=== PATIENT | female | born 1950 | race Caucasian/White ===

== ENCOUNTER → 2016-11-27 | Outpatient (CLI) | payer OTHER | LOC: MOB RAD 16:04 | PROVIDERS: ATTEND Neurological Surgery | DX: S32.001D Stable burst fracture of unspecified lumbar vertebra, subsequent encounter for fracture with routine healing (principal) | CPT/HCPCS: 72100 ==

== ENCOUNTER → 2016-12-03 | Outpatient (CLI) | payer OTHER, MEDICARE ==
--- NOTE | 2016-12-03 12:11 | DI ---
XR L-SPINE 2-3 VW,12/03/2016 10:07 AM: Clinical History: Lumbar burst fracture. Previous Exam: July 10, 2016 Findings: AP and lateral views of the lumbar spine are obtained, and demonstrate a burst fracture of the first lumbar vertebral body. Peripheral vascular calcifications are seen. There are degenerative changes of the left sacroiliac joint. Postsurgical changes are seen of the rig ht hip consistent with a total hip arthroplasty. Impression: Stable compression fracture of the first lumbar vertebral body.
--- NOTE | 2016-12-03 15:25 | DI ---
CT LUMBAR SPINE W/O CONTRAST,12/03/2016 1:45 PM: Clinical History: Stable burst fracture. Previous Exam: March 08, 2016 Findings: Multiple helically acquired CT images are obtained through the lumbar spine without contrast. There h as been some interval increasing compression and and some increased sclerosis. There is loss of inter vertebral disc height at multiple levels with vacuum disc phenomenon. There is stable posterior displacement of the posterior fragments extending into the central canal. Peripheral vascular calcifications are seen. There is some mild facet arthropathy. The lung bases are clear. The paraspinal soft tissues are unremarkable. Vascular calcifications are seen. There is near complete loss of intervertebral disc height at L5/S1 as well. Impression: Worsening compression of the first lumbar vertebral body with essentially stable posterior displaceme nt into the central canal.
== END ==
LOC: RAD 09:52
PROVIDERS: ATTEND Neurological Surgery
DX: S32.011D Stable burst fracture of first lumbar vertebra, subsequent encounter for fracture with routine healing (principal); M54.5 Low back pain; W01.0XXA Fall on same level from slipping, tripping and stumbling without subsequent striking against object, initial encounter; F17.210 Nicotine dependence, cigarettes, uncomplicated
CPT/HCPCS: 72100; 72131; 99214; G0463

== ENCOUNTER → 2017-01-08 | Outpatient (CLI) | payer OTHER, MEDICARE ==
[2017-01-08 10:33] LABS: HEMOGLOBIN A1C 5.55 % (4.2-6.0)
[2017-01-08 10:44] LABS: CHOL/HDL RATIO 2.96 RATIO (0-4.0); LDL CHOLESTEROL,CALCULATED 68.2 mg/dL
== END ==
LOC: MOB LAB 08:41
PROVIDERS: ATTEND Family Medicine
DX: E78.5 Hyperlipidemia, unspecified (principal); S32.011D Stable burst fracture of first lumbar vertebra, subsequent encounter for fracture with routine healing; F17.210 Nicotine dependence, cigarettes, uncomplicated; Z79.899 Other long term (current) drug therapy
CPT/HCPCS: 36415; 80061; 83036; 99212; G0463

== ENCOUNTER → 2017-01-22 | Outpatient (CLI) | payer OTHER, MEDICARE | LOC: MMPC 09:00 | PROVIDERS: ATTEND Family Medicine | DX: J32.9 Chronic sinusitis, unspecified (principal); F43.21 Adjustment disorder with depressed mood; G89.29 Other chronic pain | CPT/HCPCS: 99213; G0463 ==

== ENCOUNTER → 2017-02-06 | Outpatient (CLI) | payer OTHER, MEDICARE ==
[2017-02-06 12:51] LABS: BILIRUBIN,URINE NEGATIVE (NEG); CLARITY,URINE CLEAR (CLEAR); COLOR,URINE YELLOW; GLUCOSE, URINE (UA) NEGATIVE (NEG); NITRATE,URINE NEGATIVE (NEG); OCCULT BLOOD,URINE NEGATIVE (NEG); PROTEIN,URINE NEGATIVE (NEG); UROBILINOGEN,URINE 0.2 EU/dL (0.2)
[2017-02-06 12:52] LABS: BLOOD UREA NITROGEN 15 mg/dL (7-22); BUN/CREATININE RATIO 18.75 (6-20); CALCIUM 9.8 mg/dL (8.7-10.7); EST GLOMERULAR FILTRATION > 60 (>60 ml/min/1.73m(2)); SERUM ALBUMIN 4.3 g/dL (3.5-4.8); URINE SAMPLE TYPE CLEAN CATCH URINE
[2017-02-06 12:53] LABS: BASOPHILS # (AUTO) 0.08 10*3/UL; BASOPHILS % (AUTO) 0.8 % (0-1); EOSINOPHILS # (AUTO) 0.54 10*3/UL; EOSINOPHILS % (AUTO) 5.5 % (0-8); HEMOGLOBIN 15.7 g/dL (12.0-16.0); LYMPHOCYTES # (AUTO) 3.32 10*3/uL; MEAN CORPUSCULAR HEMOGLOBIN 32.9 PG (27-31); MEAN CORPUSCULAR HGB CONC 32.7 g/dL (33-37); MEAN CORPUSCULAR VOLUME 100.6 FL (81-99); MEAN PLATELET VOLUME 9.3 FL (7.4-12.2); MONOCYTES # (AUTO) 0.91 10*3/UL (0.3-0.8); MONOCYTES % (AUTO) 9.3 % (5-15); NEUTROPHILS # (AUTO) 4.97 10*3/UL; NEUTROPHILS % (AUTO) 50.5 % (50-80); RED BLOOD COUNT 4.77 10^6/uL (4.20-5.40)
[2017-02-06 12:56] LABS: PLATELET MORPHOLOGY COMMENT NORMAL MORPHOLOGY (NORM); RBC MORPHOLOGY COMMENT NORMAL MORPHOLOGY (NORM); WBC MORPHOLOGY COMMENT NORMAL MORPHOLOGY (NORM)
== END ==
LOC: MOB LAB 10:44
PROVIDERS: ATTEND Family Medicine
DX: M80.88XA Other osteoporosis with current pathological fracture, vertebra(e), initial encounter for fracture (principal); I10 Essential (primary) hypertension; F17.200 Nicotine dependence, unspecified, uncomplicated
CPT/HCPCS: 36415; 80053; 81003; 85025; 85610; 85730; 99213

== ENCOUNTER → 2017-04-11 | Outpatient (CLI) | payer OTHER, MEDICARE ==
--- NOTE | 2017-04-11 12:11 | DI ---
XR L-SPINE 2-3 VW,04/11/2017 10:23 AM: Clinical History: Status post kyphoplasty. Previous Exam: January 07, 2017 Findings: 3 views of the lumbar spine are obtained, and demonstrate postsurgical changes consistent with kyphop lasty. There is methyl methacrylate noted at the first lumbar level. There is near complete loss of vertebral body height at this level. Multiple peripheral vascular calcifications are seen. There is no evidence of methylmethacrylate within the surrounding soft tissues. A nonobstructive bowel gas pattern is seen. Impression: Status post kyphoplasty
== END ==
LOC: RAD 10:17
PROVIDERS: ATTEND Neurological Surgery
DX: Z48.811 Encounter for surgical aftercare following surgery on the nervous system (principal)
CPT/HCPCS: 72100

== ENCOUNTER → 2017-04-30 | Outpatient (CLI) | payer OTHER, MEDICARE ==
[2017-04-30 10:16] LABS: BLOOD UREA NITROGEN 14 mg/dL (7-22); EST GLOMERULAR FILTRATION > 60 (>60 ml/min/1.73m(2)); MAGNESIUM 1.9 mg/dL (1.6-2.4); PHOSPHORUS 5.2 mg/dl (2.4-4.3)
== END ==
LOC: LAB 09:54
PROVIDERS: ATTEND Family Medicine
DX: M81.0 Age-related osteoporosis without current pathological fracture (principal); F17.200 Nicotine dependence, unspecified, uncomplicated
CPT/HCPCS: 36415; 80048; 83735; 84100; G0463; J0897

== ENCOUNTER → 2017-05-15 | Outpatient (CLI) | payer OTHER, MEDICARE | LOC: MMPC 11:11 | PROVIDERS: ATTEND Surgery | DX: L98.9 Disorder of the skin and subcutaneous tissue, unspecified (principal); L57.0 Actinic keratosis | CPT/HCPCS: 11100 ×2; 17000 ×2; G0463 ==

== ENCOUNTER 2017-07-18 13:37 | Inpatient (IN) ==
[2017-07-18] MEDS ORDERED: LIDOCAINE W/ SODIUM BICARB 0.5 ML SYR SUBD PRN (14:36)
--- NOTE | 2017-07-18 14:45 | PDOC ---
HPI - History of Present Illness History of Present Illness: 59-year-old to 67-year-old female who was seen at the primary care physician's office with increased shortness of breath and cough over the last 2 days she had been in [place] for a couple days where she started getting some cough O2 sats in the low 80s in the office he usually and 90s B liters has been requiring more oxygen and is here admitted the direct admit for COPD exacerbation Past Medical History Medical History: 1. COPD. 2. Hypertension. 3. Coronary artery disease with previous MN in 2000 had 4 stents then. 4. Osteoporosis. 5. Chronic back pain Surgical History: 1. Bilateral knee replacement. 2. Right hip replacement. 3. Hysterectomy Family History: Reviewed an Not Pertinent In the Past 12 Months, Have Used or Abuse Any of the Following Substance: None Medication / Allergies Home Medications: Home Medications Medication Instructions Recorded Confirmed Type Aspirin [Ecotrin] 325 mg ORAL QD tab 08/20/11 07/18/17 History Cetirizine HCl [Zyrtec] 10 mg ORAL QD tab 12/16/12 07/18/17 History Calc/D3/Mag/Zn/Rigging [employer]/Karthik/Beulah 2 ea PO QD #180 tab 03/01/13 07/18/17 History [Calcium 600 mg + Vit D Tab] Alprazolam 1 tab PO TID #60 tab 02/12/16 07/18/17 History Tramadol HCl [Ultram] 1 - 2 mg PO Q6H PRN #100 tab 02/12/16 07/18/17 History Polyethylene Glycol 3350 [Miralax] 17 gm PO DAILY #1 bottle 02/23/16 07/18/17 History Albuterol/Ipratrop Neb Soln 3 ml NEB QID #30 ampul.neb 09/03/16 07/18/17 Rx [Duoneb Neb Soln] Cyclobenzaprine HCl 10 mg PO TID #30 tab 09/16/16 07/18/17 Rx Fluticasone/Salmeterol [Advair #5 #5 Samples 09/16/16 07/18/17 Sample Hfa] Sample Valacyclovir HCl [Valacyclovir] 1,000 mg ORAL TID #21 tab 10/18/16 Clinic Epinephrine [Epipen] 0.3 mg IM PRN #2 ea 11/06/16 07/18/17 Rx Albuterol Sulfate [Proair Hfa] 2 puff INH Q4-6H #3 inh 12/10/16 07/18/17 Rx Benazepril HCl [Lotensin] 10 mg PO QD #90 tab 12/10/16 07/18/17 History Famotidine 40 mg ORAL BID #180 tab 12/10/16 07/18/17 Rx Fluticasone/Salmeterol [Advair 1 puff IH BID #3 inhaler 12/10/16 07/18/17 Rx 250-50 Diskus] Metoprolol Succinate 1 tab PO DAILY #90 tab 12/10/16 07/18/17 Rx Paroxetine HCl 40 mg PO DAILY #90 tab 12/10/16 07/18/17 Rx Simvastatin 1 tab PO DAILY #90 tab 12/10/16 07/18/17 Rx Albuterol Neb Soln 0.083% 1 vial NEB QID PRN #1 box 01/22/17 07/18/17 History Oxycodone HCl/Acetaminophen 1 tab PO Q4H #60 tab 01/22/17 07/18/17 History [Percocet 7.5-325 Mg Tablet] Gabapentin 1 cap PO TID #90 cap 01/23/17 07/18/17 Rx Mometasone Furoate [Asmanex Hfa] #1 #1 Samples 02/06/17 07/18/17 Sample Sample Cefuroxime Axetil [Cefuroxime] 500 mg PO BID #20 tab 06/13/17 07/18/17 Clinic predniSONE Tab [Deltasone Tab] 2 tab PO DAILY #10 tab 06/13/17 07/18/17 Clinic Valacyclovir HCl [Valacyclovir] 1,000 mg ORAL QD #90 tab 06/23/17 07/18/17 Clinic fluticasone-salmeterol 45 mcg-21 #3 Samples 07/04/17 07/18/17 Sample mcg/actuation HFA aerosol inhaler Nitroglycerin SL Tab [Nitrostat 0.4 mg PO ONCE #1 bottle 07/18/17 07/18/17 History SL Tab] Allergies/Adverse Reactions: Allergies 3 Allergy/AdvReac Type Severity Reaction Status Date / Time latex Allergy Severe ANAPHLAXIS Unverified 01/22/17 11:14 hydrocodone Allergy Intermediate HIVES Unverified 01/22/17 11:14 Influenza Virus Vaccines Allergy Intermediate local Unverified 01/22/17 11:14 [Influenza Virus V swelling *RETIRED-12/24/12] and erythema. Nausea avocado, bananas, milk Allergy Mild ANAPHLAXIS Uncoded 09/03/16 02:52 CAT GUT SUTURE Allergy NOT Uncoded 09/03/16 02:52 APPLICABLE Watermelon, kiwi, cantaloupe Allergy ANAPHLAXIS Uncoded 09/03/16 02:52 Allergy Nasal [place] AdvReac Intermediate NOT Uncoded 09/03/16 02:52 APPLICABLE Review of Systems - Review of Systems All Systems: Reviewed & No Additional Complaints Except as Stated - Respiratory Respiratory: REPORTS: Cough, Wheezing - Cardiovascular Cardiovascular: DENIES: Negative System Review, Chest Pain, Edema, Syncope, Palpitations, Orthopnea, Paroxysmal Nocturnal Dyspnea, Other, See HPI - Gastrointestinal Gastrointestinal / Abdominal: DENIES: Negative System Review, Nausea, Vomiting, Diarrhea, Constipation, Abdominal Pain, Bloody Stool, Poor Appetite, Heartburn, Regurgitation, Bloating, Lactose Intolerance, Melena, Bright Red Blood per Rectum, Other, See HPI Exam - General General Appearance: Cooperative - Head Head Exam: Normal Inspection, Normocephalic, Atraumatic - Neck Neck Exam: Normal Inspection - Respiratory Respiratory Exam: POSITIVE: Wheezes, Prolonged Expiratory Phase - Cardiovascular Cardiovascular Exam: POSITIVE: RRR, No Murmur, No Clicks, No Gallops - GI/Abdominal GI/Abdominal Exam: POSITIVE: Non Tender, Non Distended, Soft - Extremities Extremities Exam: POSITIVE: No Clubbing Present, No Edema Present, No Cyanosis Present - Neurological Neurological Exam: POSITIVE: Alert, Oriented x 3, CN II-XII Intact, Speech Intact / Clear Results - Labs CBC and BMP: 07/18/17 15:06 07/18/17 15:06 Assessment and Plan - Patient Problems (1) COPD exacerbation Current Visit: No Status: Acute Code(s): J44.1 - Chronic obstructive pulmonary disease with (acute) exacerbation (2) Hypoxia Current Visit: No Status: Acute Code(s): R09.02 - Hypoxemia (3) Hypertension Current Visit: No Status: Acute Code(s): I10 - Essential (primary) hypertension (4) Depression Current Visit: No Status: Acute Code(s): F32.9 - Major depressive disorder, single episode, unspecified - Assessment / Plan Additional Assessment/Plan Details: COPD exacerbationwe will admit the patient [facility] oxygen therapy to maintain sats around [address] scan for PE or pneumonia start patient on IV Solu-Medrol, ceftriaxone, and Zithromax, also check CBC CMP. Dual nebs for shortness of breath and resume usual medication most of the stuff has not been updated as I did hold the a lot of her meds which I think she does not need a present time. Further treatment depending on CT scan results and labs. For other medical issues include hypertension and GERD continue home meds
[2017-07-18] MEDS ORDERED: ALPRAZOLAM PO SCH (15:00)
[2017-07-18 15:04] LABS: VENOUS PH 7.34 (7.32-7.42)
[2017-07-18 15:09] LABS: BASOPHILS # (AUTO) 0.07 10*3/UL; BASOPHILS % (AUTO) 1.1 % (0-1); EOSINOPHILS # (AUTO) 0.26 10*3/UL; EOSINOPHILS % (AUTO) 4.1 % (0-8); Hematocrit [HCT] 46.3 % (37.0-47.0); Hemoglobin [HGB] 15.2 g/dL (12.0-16.0); LYMPHOCYTES # (AUTO) 2.23 10*3/uL; MEAN CORPUSCULAR HEMOGLOBIN 32.9 PG (27-31); MEAN CORPUSCULAR HGB CONC 32.8 g/dL (33-37); MEAN CORPUSCULAR VOLUME 100.2 FL (81-99); MEAN PLATELET VOLUME 9.2 FL (7.4-12.2); MONOCYTES # (AUTO) 0.91 10*3/UL (0.3-0.8); MONOCYTES % (AUTO) 14.5 % (5-15); NEUTROPHILS % (AUTO) 44.6 % (50-80); RED BLOOD COUNT 4.62 10^6/uL (4.20-5.40)
[2017-07-18 15:13] LABS: PLATELET MORPHOLOGY COMMENT NORMAL MORPHOLOGY (NORM); RBC MORPHOLOGY COMMENT NORMAL MORPHOLOGY (NORM); WBC MORPHOLOGY COMMENT NORMAL MORPHOLOGY (NORM)
[2017-07-18] MEDS: IPRATROPIUM/ALBUTEROL SULFATE 3 ML NEB NEB SCH ×2 (15:14→19:20)
[2017-07-18 15:19] LABS: BLOOD UREA NITROGEN 12 mg/dL (7-22); BUN/CREATININE RATIO 17.14 (6-20)
[2017-07-18] MEDS: cefTRIAXone Inj 1 GM in Sodium Chloride 0.9% 100 ML IV SCH (15:23)
[2017-07-18] MEDS: methylPREDNISolone 125 MG/2 ML VIAL IVP SCH ×2 (15:23→22:13)
[2017-07-18] MEDS: HEPARIN 5000 UNIT/1 ML SUBCUT SCH ×2 (15:23→22:13)
[2017-07-18] MEDS: GABAPENTIN 300 MG CAPSULE PO SCH ×3 (15:24→20:51)
--- NOTE | 2017-07-18 18:29 | DI ---
EXAM: CT Chest With Intravenous Contrast CLINICAL HISTORY: Physician Notes: Tech Comments: TECHNIQUE: Axial computed tomography images of the chest with intravenous contrast. COMPARISON: No relevant prior studies available. FINDINGS: Lungs: No central pulmonary embolus. No consolidation. Pleural space: Unremarkable. No pneumothorax. No effusion. Heart: Cardiomegaly. Bones/joints: Compression deformity and vertebroplasty at L1. Soft tissues: Unremarkable. Vasculature: Unremarkable. Lymph nodes: No enlarged lymph nodes. Liver: Fatty liver. IMPRESSION: No central pulmonary embolus.
[2017-07-18] MEDS: FLUTICASONE/SALMETEROL 250/50 UD INHALER INH SCH (19:27)
[2017-07-18] MEDS: Amoxicill/Clav 875/125mg Tab 1 TAB TAB PO SCH (20:51)
[2017-07-18] MEDS: FAMOTIDINE 40 MG TABLET PO SCH (20:52)
[2017-07-19] MEDS: methylPREDNISolone 125 MG/2 ML VIAL IVP SCH ×2 (03:49→09:25)
[2017-07-19] MEDS: NORMAL SALINE 10 ML SYRINGE FLUSH IVP PRN ×2 (03:51→17:42)
[2017-07-19] MEDS: FLUTICASONE/SALMETEROL 250/50 UD INHALER INH SCH ×2 (06:47→19:11)
[2017-07-19] MEDS: IPRATROPIUM/ALBUTEROL SULFATE 3 ML NEB NEB SCH ×4 (06:48→19:10)
[2017-07-19] MEDS: HEPARIN 5000 UNIT/1 ML SUBCUT SCH ×2 (08:05→20:00)
[2017-07-19] MEDS ORDERED: DOCUSATE 100 MG CAPSULE PO PRN (09:00)
[2017-07-19] MEDS: predniSONE Tab 20 MG TAB PO SCH (09:20)
[2017-07-19] MEDS: PARoxetine Tab 20 MG TAB PO SCH (09:21)
[2017-07-19] MEDS: BENAZEPRIL 10 MG TABLET PO SCH (09:22)
[2017-07-19] MEDS: FAMOTIDINE 40 MG TABLET PO SCH ×2 (09:22→20:16)
[2017-07-19] MEDS: METOPROLOL SUCCINATE 25 MG SR 24H TABLET PO SCH (09:22)
[2017-07-19] MEDS: ASPIRIN 325 MG EC TABLET PO SCH (09:22)
[2017-07-19] MEDS: Amoxicill/Clav 875/125mg Tab 1 TAB TAB PO SCH (09:24)
[2017-07-19] MEDS ORDERED: PNEUMOCOCCAL 23 VACCINE 25 MCG/0.5 ML VIAL IM ONE (15:37)
--- NOTE | 2017-07-19 15:46 | PDOC(PROG) ---
Date and Time of Service: 07/19/2017, 1541 Interval History: No chest pain today. Feels significantly better. States that she smokes a pack per day prior to hospital stay, but when she was on her trip to [place], [place], was down to about half a pack per day and then has not felt like smoking over the last 2 days. Denies any nausea or vomiting. Has an oxygen concentrator at home from an extended pulmonary illness that her suffered from. He passed on a year and a half ago. Objective : Data - Labs CBC and BMP: 07/18/17 15:06 07/18/17 15:06 Additional Lab Results: Laboratory Results 07/18/17 07/18/17 07/18/17 Range/Units 14:57 15:06 15:06 WBC 6.28 (4.8-10.8) 10^3/uL RBC 4.62 (4.20-5.40) 10^6/uL Hgb 15.2 (12.0-16.0) g/dL Hct 46.3 (37.0-47.0) % MCV 100.2 H (81-99) FL MCH 32.9 H (27-31) PG MCHC 32.8 L (33-37) g/dL RDW Std Deviation 50.3 H (39-50) fL RDW Coeff of Angelica 14.0 (11.5-14.5) % Plt Count 260 (140-350) 10*3/uL MPV 9.2 (7.4-12.2) FL Immature Gran % (Auto) 0.2 (0-5) % Neut % (Auto) 44.6 L (50-80) % Lymph % (Auto) 35.5 (10-50) % [place] % (Auto) 14.5 (5-15) % Eos % (Auto) 4.1 (0-8) % Baso % (Auto) 1.1 H (0-1) % Immature Gran # (Auto) 0.01 10*3/UL Neut # (Auto) 2.80 10*3/UL Lymph # (Auto) 2.23 10*3/uL [place] # (Auto) 0.91 H (0.3-0.8) 10*3/UL Eos # (Auto) 0.26 10*3/UL Baso # (Auto) 0.07 10*3/UL WBC Morphology Comment Normal morphology (NORM) Plt Morphology Comment Normal morphology (NORM) RBC Morph Comment Normal morphology (NORM) VBG pH 7.34 (7.32-7.42) VBG pCO2 43 L (45-55) mmHg VBG HCO3 24 (22-26) mmol/L VBG Base Excess -2 (-2-2) MMOL/L Sodium 141 (135-145) meq/L Potassium 4.2 (3.8-5.2) meq/L Chloride 106 (98-112) meq/L Carbon Dioxide 24 (23-33) meq/L Anion Gap 11 (5-20) BUN 12 (7-22) mg/dL Creatinine 0.7 (0.50-1.20) mg/dL Estimated GFR > 60 (>60 ml/min/1.73m(2)) BUN/Creatinine Ratio 17.14 (6-20) Glucose 88 (78-110) mg/dL Calculated Osmolality 290.0 (267-292) mOsm/kg Calcium 9.7 (8.7-10.7) mg/dL Troponin I (< 0.040) ng/mL 07/18/17 Range/Units 15:06 WBC (4.8-10.8) 10^3/uL RBC (4.20-5.40) 10^6/uL Hgb (12.0-16.0) g/dL Hct (37.0-47.0) % MCV (81-99) FL MCH (27-31) PG MCHC (33-37) g/dL RDW Std Deviation (39-50) fL RDW Coeff of Angelica (11.5-14.5) % Plt Count (140-350) 10*3/uL MPV (7.4-12.2) FL Immature Gran % (Auto) (0-5) % Neut % (Auto) (50-80) % Lymph % (Auto) (10-50) % [place] % (Auto) (5-15) % Eos % (Auto) (0-8) % Baso % (Auto) (0-1) % Immature Gran # (Auto) 10*3/UL Neut # (Auto) 10*3/UL Lymph # (Auto) 10*3/uL [place] # (Auto) (0.3-0.8) 10*3/UL Eos # (Auto) 10*3/UL Baso # (Auto) 10*3/UL WBC Morphology Comment (NORM) Plt Morphology Comment (NORM) RBC Morph Comment (NORM) VBG pH (7.32-7.42) VBG pCO2 (45-55) mmHg VBG HCO3 (22-26) mmol/L VBG Base Excess (-2-2) MMOL/L Sodium (135-145) meq/L Potassium (3.8-5.2) meq/L Chloride (98-112) meq/L Carbon Dioxide (23-33) meq/L Anion Gap (5-20) BUN (7-22) mg/dL Creatinine (0.50-1.20) mg/dL Estimated GFR (>60 ml/min/1.73m(2)) BUN/Creatinine Ratio (6-20) Glucose (78-110) mg/dL Calculated Osmolality (267-292) mOsm/kg Calcium (8.7-10.7) mg/dL Troponin I < 0.012 (< 0.040) ng/mL - Imaging CT Scan Status: Report Reviewed by Me (Negative for pulmonary embolism, CT scan of chest was negative for pulmonary embolism) Objective : Exam - General General Appearance: No Acute Distress, Cooperative Additional General Exam Details: Vital Signs - Last Taken Temperature 98 F 07/19/17 11:20 Pulse Rate 92 07/19/17 14:51 Respiratory Rate 16 07/19/17 14:51 Blood Pressure 123/61 07/19/17 11:20 Pulse Ox 94 07/19/17 14:51 On oxygen, 2 L - Eye Eye Exam: No Scleral Icterus - ENT ENT Exam: Mucous Membranes Moist - Respiratory Respiratory Exam: Breathing Non Labored, Wheezes, Coarse Breath Sounds - Cardiovascular Cardiovascular Exam: RRR, No Murmur, No Clicks, No Gallops, No Rubs, No JVD - GI/Abdominal GI/Abdominal Exam: Normal Bowel Sounds, Non Tender, Non Distended, Soft - Extremities Extremities Exam: No Edema Present, No Cyanosis Present - Neurological Neurological Exam: Alert, Oriented x 3, No Facial Droop, Speech Intact / Clear, Moves All Extremities Equally - Psychiatric Psychiatric Exam: Normal Affect, Normal Mood Assessment and Plan - Patient Problems (1) COPD exacerbation Current Visit: Yes Status: Acute Code(s): J44.1 - Chronic obstructive pulmonary disease with (acute) exacerbation (2) Hypercholesterolemia Current Visit: Yes Status: Acute Code(s): E78.00 - Pure hypercholesterolemia , unspecified (3) Hypertension Current Visit: Yes Status: Acute Code(s): I10 - Essential (primary) hypertension Qualifiers: Hypertension type: essential hypertension Qualified Code(s): I10 - Essential (primary) hypertension (4) Depression Current Visit: Yes Status: Chronic Code(s): F32.9 - Major depressive disorder, single episode, unspecified Qualifiers: Depression Type: major depressive disorder Major depression recurrence: recurrent Active/Remission status: remission status unspecified Qualified Code(s): F33.9 - Major depressive disorder, recurrent, unspecified - Assessment / Plan Additional Assessment/Plan Details: continue antibiotics, increase rocephin to 2 grams IV Q 24 hours steroids oxygen as necessary pneumovax breathing therapies as necessary hopefully to orals tomorrow smoking cessation education; I provided k[place]ispel at bedside for smoking cessation.
[2017-07-19] MEDS ORDERED: cefTRIAXone Inj 2 GM in Sodium Chloride 0.9% 100 ML IV SCH (16:00)
[2017-07-19] MEDS: cefTRIAXone Inj 1 GM in Sodium Chloride 0.9% 100 ML IV SCH (17:24)
[2017-07-19] MEDS ORDERED: CEFTRIAXONE SODIUM 2 GM VIAL IV ONE (17:30)
[2017-07-19] MEDS ORDERED: Sodium Chloride 0.9% 100 ML IV ONE (17:30)
[2017-07-19] MEDS: cefTRIAXone Inj 2 GM in Sodium Chloride 0.9% 100 ML IV SCH (17:42)
[2017-07-19] MEDS: GABAPENTIN 300 MG CAPSULE PO SCH (20:16)
[2017-07-19] MEDS: Simvastatin Tab 40 MG TAB PO SCH (20:17)
[2017-07-19] MEDS ORDERED: Pneumococcal Vacc 13 Syringe 0.5 ML DISP.SYRIN IM ONE (21:00)
[2017-07-20] MEDS: HEPARIN 5000 UNIT/1 ML SUBCUT SCH ×3 (03:58→20:09)
[2017-07-20] MEDS: IPRATROPIUM/ALBUTEROL SULFATE 3 ML NEB NEB SCH ×4 (07:36→19:42)
[2017-07-20] MEDS: FLUTICASONE/SALMETEROL 250/50 UD INHALER INH SCH ×2 (07:45→19:45)
[2017-07-20] MEDS ORDERED: ALBUTEROL SULFATE 2.5 MG/3 ML NEB ONE (07:54)
[2017-07-20] MEDS: ASPIRIN 325 MG EC TABLET PO SCH (09:09)
[2017-07-20] MEDS: predniSONE Tab 20 MG TAB PO SCH (09:09)
[2017-07-20] MEDS: BENAZEPRIL 10 MG TABLET PO SCH (09:09)
[2017-07-20] MEDS: METOPROLOL SUCCINATE 25 MG SR 24H TABLET PO SCH (09:09)
[2017-07-20] MEDS: FAMOTIDINE 40 MG TABLET PO SCH ×2 (09:09→21:20)
[2017-07-20] MEDS: PARoxetine Tab 20 MG TAB PO SCH (09:09)
[2017-07-20] MEDS ORDERED: Sodium Chloride 0.9% 100 ML IV ONE (17:26)
[2017-07-20] MEDS: cefTRIAXone Inj 2 GM in Sodium Chloride 0.9% 100 ML IV SCH (17:27)
--- NOTE | 2017-07-20 19:39 | PDOC(PROG) ---
Date and Time of Service: 07/20/2017 193 Interval History: no chest pain. not feeling short of breath. Patient's daughter, a nurse, stated that the patient desaturates when she walks to 86%. She's been on room air oxygen at rest. She will not qualify for home oxygen at that level. No nausea or vomiting. Patient feels significantly better than she did on admission. Objective : Data - Labs CBC and BMP: 07/18/17 15:06 07/18/17 15:06 Objective : Exam - General General Appearance: No Acute Distress, Cooperative Additional General Exam Details: Vital Signs - Last Taken Temperature 97.3 F 07/20/17 16:51 Pulse Rate 93 07/20/17 16:51 Respiratory Rate 18 07/20/17 16:51 Blood Pressure 92/40 07/20/17 16:51 Pulse Ox 93 07/20/17 16:51 On room air oxygen - Eye Eye Exam: No Scleral Icterus - ENT ENT Exam: Mucous Membranes Moist - Respiratory Respiratory Exam: Breathing Non Labored, Wheezes - Cardiovascular Cardiovascular Exam: RRR, No Murmur, No Clicks, No Gallops, No Rubs, No JVD - GI/Abdominal GI/Abdominal Exam: Normal Bowel Sounds, Non Tender, Non Distended, Soft - Extremities Extremities Exam: No Clubbing Present, No Edema Present, No Cyanosis Present - Neurological Neurological Exam: Alert, Oriented x 3, No Facial Droop, Speech Intact / Clear, Moves All Extremities Equally - Psychiatric Psychiatric Exam: Normal Affect, Normal Mood Assessment and Plan - Patient Problems (1) COPD exacerbation Current Visit: Yes Status: Acute Code(s): J44.1 - Chronic obstructive pulmonary disease with (acute) exacerbation (2) Hypercholesterolemia Current Visit: Yes Status: Acute Code(s): E78.00 - Pure hypercholesterolemia , unspecified (3) Hypertension Current Visit: Yes Status: Acute Code(s): I10 - Essential (primary) hypertension Qualifiers: Hypertension type: essential hypertension Qualified Code(s): I10 - Essential (primary) hypertension (4) Depression Current Visit: Yes Status: Chronic Code(s): F32.9 - Major depressive disorder, single episode, unspecified Qualifiers: Depression Type: major depressive disorder Major depression recurrence: recurrent Active/Remission status: remission status unspecified Qualified Code(s): F33.9 - Major depressive disorder, recurrent, unspecified - Assessment / Plan Additional Assessment/Plan Details: Patient overall feels her breathing is much better, but she still continues to have some wheezing. She is on room air oxygen at rest. I would like to watch her 1 more day with desaturation with activity. We'll transition to oral antibiotics tomorrow. Steroid taper. I gave more smoking cessation counseling at bedside today with her daughter present at bedside as well. The patient and her daughter agreed with the plan.
[2017-07-20] MEDS ORDERED: POLYETHYLENE GLYCOL 3350 17 GM POWDER PO ONE (20:33)
[2017-07-20] MEDS: Simvastatin Tab 40 MG TAB PO SCH (21:20)
[2017-07-20] MEDS: GABAPENTIN 300 MG CAPSULE PO SCH (21:20)
[2017-07-21] MEDS: HEPARIN 5000 UNIT/1 ML SUBCUT SCH ×2 (03:49→12:37)
[2017-07-21] MEDS: FLUTICASONE/SALMETEROL 250/50 UD INHALER INH SCH ×2 (06:53→20:36)
[2017-07-21] MEDS: IPRATROPIUM/ALBUTEROL SULFATE 3 ML NEB NEB SCH ×4 (06:53→20:36)
[2017-07-21 07:17] VITALS: O2SAT 92
[2017-07-21] MEDS: PARoxetine Tab 20 MG TAB PO SCH (08:58)
[2017-07-21] MEDS: METOPROLOL SUCCINATE 25 MG SR 24H TABLET PO SCH (08:59)
[2017-07-21] MEDS: predniSONE Tab 20 MG TAB PO SCH (08:59)
[2017-07-21] MEDS: BENAZEPRIL 10 MG TABLET PO SCH (08:59)
[2017-07-21] MEDS: ASPIRIN 325 MG EC TABLET PO SCH (08:59)
[2017-07-21] MEDS: FAMOTIDINE 40 MG TABLET PO SCH (08:59)
[2017-07-21] MEDS ORDERED: POLYETHYLENE GLYCOL 3350 17 GM POWDER PO SCH (09:00)
[2017-07-21 11:15] VITALS: BP 132/76; RESP 17; TEMP 97.6
[2017-07-21] MEDS ORDERED: Amoxicill/Clav 875/125mg Tab 1 TAB TAB PO ONE (12:59)
--- NOTE | 2017-07-21 14:40 | DCSUMMARY ---
Hospitalization Summary Admit Date: 07/18/17 Discharge Date: 07/21/17 Primary Diagnosis:: COPD exacerbation Hospital Course: The very pleasant 67-year-old female that has a history of smoking, and came in with cough, phlegm production, shortness breath, and states that she also has some sinus congestion. She was placed on Rocephin, steroids, breathing therapies, and oxygen as necessary. Intermittently, towards the end of her hospital stay, she was on room air but was 87% on room air this morning with respiratory therapy and 85% with me. This was at rest. She will likely need 2 L of oxygen indefinitely. I really encouraged patient to consult and continue her efforts on smoking cessation as she states she has not had the desire to smoke over the past couple of days. Given the sinus component and sinusitis component, I'll extend antibiotic therapy to a total of 10 days with Augmentin as therapy post hospital stay. Other medical problems remained stable through the hospital stay. Today, no completes of chest pain, no shortness breath, patient complains mostly of stress which we've dealt with in several fashions. I had the visit with the patient and her daughter who is a nurse at the clinic, and stated that I think the patient needs to work on some stress reduction techniques to improve her overall health. Assessment and Plan: 1. As per discharge assessments noted 2. Disposition: Patient is discharged home. 3. Condition on discharge, stable and improved. 4. Diet: regular diet 5. Activities: resume normal activities, but continue to quit smoking 6. Follow-Up: 1. Dr. Mcgarry in 1 week 2. 7. Medications at the Time of Discharge: Home Medications Medication Instructions Recorded Confirmed Type Aspirin [Ecotrin] 325 mg ORAL QD tab 08/20/11 07/18/17 History Cetirizine HCl [Zyrtec] 10 mg ORAL QD tab 12/16/12 07/18/17 History Calc/D3/Mag/Zn/Licensed Mental Health Counselor/Karthik/[place] 2 ea PO QD #180 tab 03/01/13 07/18/17 History [Calcium 600 mg + Vit D Tab] Alprazolam 1 tab PO TID #60 tab 02/12/16 07/18/17 History Tramadol HCl [Ultram] 1 - 2 mg PO Q6H PRN #100 tab 02/12/16 07/18/17 History Polyethylene Glycol 3350 [Miralax] 17 gm PO DAILY #1 bottle 02/23/16 07/18/17 History Albuterol/Ipratrop Neb Soln 3 ml NEB QID #30 ampul.neb 09/03/16 07/18/17 Rx [Duoneb Neb Soln] Cyclobenzaprine HCl 10 mg PO TID #30 tab 09/16/16 07/18/17 Rx Fluticasone/Salmeterol [Advair #5 #5 Samples 09/16/16 07/18/17 Sample Hfa] Sample Valacyclovir HCl [Valacyclovir] 1,000 mg ORAL TID #21 tab 10/18/16 Clinic Epinephrine [Epipen] 0.3 mg IM PRN #2 ea 11/06/16 07/18/17 Rx Albuterol Sulfate [Proair Hfa] 2 puff INH Q4-6H #3 inh 12/10/16 07/18/17 Rx Benazepril HCl [Lotensin] 10 mg PO QD #90 tab 12/10/16 07/18/17 History Famotidine 40 mg ORAL BID #180 tab 12/10/16 07/18/17 Rx Fluticasone/Salmeterol [Advair 1 puff IH BID #3 inhaler 12/10/16 07/18/17 Rx 250-50 Diskus] Metoprolol Succinate 1 tab PO DAILY #90 tab 12/10/16 07/18/17 Rx Paroxetine HCl 40 mg PO DAILY #90 tab 12/10/16 07/18/17 Rx Simvastatin 1 tab PO DAILY #90 tab 12/10/16 07/18/17 Rx Albuterol Neb Soln 0.083% 1 vial NEB QID PRN #1 box 01/22/17 07/18/17 History Oxycodone HCl/Acetaminophen 1 tab PO Q4H #60 tab 01/22/17 07/18/17 History [Percocet 7.5-325 mg Tablet] Gabapentin 1 cap PO TID #90 cap 01/23/17 07/18/17 Rx Mometasone Furoate [Asmanex Hfa] #1 #1 Samples 02/06/17 07/18/17 Sample Sample Valacyclovir HCl [Valacyclovir] 1,000 mg ORAL QD #90 tab 06/23/17 07/18/17 Clinic fluticasone-salmeterol 45 mcg-21 #3 Samples 07/04/17 07/18/17 Sample mcg/actuation HFA aerosol inhaler Nitroglycerin SL Tab [Nitrostat 0.4 mg PO ONCE #1 bottle 07/18/17 07/18/17 History SL Tab] Amoxicill/Clav 875/125mg 1 tab PO BID #14 tab 07/21/17 Rx [Augmentin 875/125mg] Prednisone 10 mg PO DAILY #30 tab 07/21/17 Rx 8. Time, care, counseling and coordination of care for this discharge is greater than 30 minutes. Exam - Vitals Vital Signs: Vital Signs Vital Signs - Last Taken Temperature 97.6 F 07/21/17 11:14 Pulse Rate 78 07/21/17 11:14 Respiratory Rate 17 07/21/17 11:14 Blood Pressure 132/76 07/21/17 11:14 Pulse Ox 92 07/21/17 11:14 Patient was 87% on room air challenges morning and 85% on my room air challenge at rest. - General General Appearance: No Acute Distress, Cooperative - Head Head Exam: Normal Inspection, Normocephalic, Atraumatic - Eye Eye Exam: POSITIVE: No Scleral Icterus - ENT ENT Exam: POSITIVE: Mucous Membranes Moist - Respiratory Respiratory Exam: POSITIVE: Breathing Non Labored, Wheezes (But improved overall ) - Cardiovascular Cardiovascular Exam: POSITIVE: RRR, No Murmur, No Clicks, No Gallops, No Rubs, No JVD - GI/Abdominal GI/Abdominal Exam: POSITIVE: Normal Bowel Sounds, Non Tender, Non Distended, Soft - Extremities Extremities Exam: POSITIVE: No Clubbing Present, No Edema Present, No Cyanosis Present - Neurological Neurological Exam: POSITIVE: Alert, Oriented x 3, No Facial Droop, Speech Intact / Clear, Moves All Extremities Equally - Psychiatric Psychiatric Exam: POSITIVE: Normal Mood, Anxious Data Perinent Studies: Laboratory Results 07/18/17 07/18/17 07/18/17 Range/Units 14:57 15:06 15:06 WBC 6.28 (4.8-10.8) 10^3/uL RBC 4.62 (4.20-5.40) 10^6/uL Hgb 15.2 (12.0-16.0) g/dL Hct 46.3 (37.0-47.0) % MCV 100.2 H (81-99) FL MCH 32.9 H (27-31) PG MCHC 32.8 L (33-37) g/dL RDW Std Deviation 50.3 H (39-50) fL RDW Coeff of Angelica 14.0 (11.5-14.5) % Plt Count 260 (140-350) 10*3/uL MPV 9.2 (7.4-12.2) FL Immature Gran % (Auto) 0.2 (0-5) % Neut % (Auto) 44.6 L (50-80) % Lymph % (Auto) 35.5 (10-50) % [place] % (Auto) 14.5 (5-15) % Eos % (Auto) 4.1 (0-8) % Baso % (Auto) 1.1 H (0-1) % Immature Gran # (Auto) 0.01 10*3/UL Neut # (Auto) 2.80 10*3/UL Lymph # (Auto) 2.23 10*3/uL [place] # (Auto) 0.91 H (0.3-0.8) 10*3/UL Eos # (Auto) 0.26 10*3/UL Baso # (Auto) 0.07 10*3/UL WBC Morphology Comment Normal morphology (NORM) Plt Morphology Comment Normal morphology (NORM) RBC Morph Comment Normal morphology (NORM) VBG pH 7.34 (7.32-7.42) VBG pCO2 43 L (45-55) mmHg VBG HCO3 24 (22-26) mmol/L VBG Base Excess -2 (-2-2) MMOL/L Sodium 141 (135-145) meq/L Potassium 4.2 (3.8-5.2) meq/L Chloride 106 (98-112) meq/L Carbon Dioxide 24 (23-33) meq/L Anion Gap 11 (5-20) BUN 12 (7-22) mg/dL Creatinine 0.7 (0.50-1.20) mg/dL Estimated GFR > 60 (>60 ml/min/1.73m(2)) BUN/Creatinine Ratio 17.14 (6-20) Glucose 88 (78-110) mg/dL Calculated Osmolality 290.0 (267-292) mOsm/kg Calcium 9.7 (8.7-10.7) mg/dL Troponin I (< 0.040) ng/mL 07/18/17 Range/Units 15:06 WBC (4.8-10.8) 10^3/uL RBC (4.20-5.40) 10^6/uL Hgb (12.0-16.0) g/dL Hct (37.0-47.0) % MCV (81-99) FL MCH (27-31) PG MCHC (33-37) g/dL RDW Std Deviation (39-50) fL RDW Coeff of Angelica (11.5-14.5) % Plt Count (140-350) 10*3/uL MPV (7.4-12.2) FL Immature Gran % (Auto) (0-5) % Neut % (Auto) (50-80) % Lymph % (Auto) (10-50) % [place] % (Auto) (5-15) % Eos % (Auto) (0-8) % Baso % (Auto) (0-1) % Immature Gran # (Auto) 10*3/UL Neut # (Auto) 10*3/UL Lymph # (Auto) 10*3/uL [place] # (Auto) (0.3-0.8) 10*3/UL Eos # (Auto) 10*3/UL Baso # (Auto) 10*3/UL WBC Morphology Comment (NORM) Plt Morphology Comment (NORM) RBC Morph Comment (NORM) VBG pH (7.32-7.42) VBG pCO2 (45-55) mmHg VBG HCO3 (22-26) mmol/L VBG Base Excess (-2-2) MMOL/L Sodium (135-145) meq/L Potassium (3.8-5.2) meq/L Chloride (98-112) meq/L Carbon Dioxide (23-33) meq/L Anion Gap (5-20) BUN (7-22) mg/dL Creatinine (0.50-1.20) mg/dL Estimated GFR (>60 ml/min/1.73m(2)) BUN/Creatinine Ratio (6-20) Glucose (78-110) mg/dL Calculated Osmolality (267-292) mOsm/kg Calcium (8.7-10.7) mg/dL Troponin I < 0.012 (< 0.040) ng/mL Radiology data: This report is embedded to transfer information to the primary care physician that will see the patient in the clinic. [address] [facility] [place] [address] PH: [phone] FAX: [phone] ~DIAGNOSTIC IMAGING REPORT~ Patient: KATARZYNA WALSH : 1950 Sex: F Age: 67 Exam Name: CT CTA Chest Non-Coronary [facility] Exam Date: 07/18/17 Report # : [id number] CPT Code: 10930 EMR/MR #: [id number] Ordering: DEEPTI PERSON Admiting: DEEPTI PERSON MD. Primary: Levon Mcgarry MD Attending: DEEPTI PERSON MD. Signed EXAM: CT Chest With Intravenous Contrast CLINICAL HISTORY: Physician Notes: Tech Comments: TECHNIQUE: Axial computed tomography images of the chest with intravenous contrast. COMPARISON: No relevant prior studies available. FINDINGS: Lungs: No central pulmonary embolus. No consolidation. Pleural space: Unremarkable. No pneumothorax. No effusion. Heart: Cardiomegaly. Bones/joints: Compression deformity and vertebroplasty at L1. Soft tissues: Unremarkable. Vasculature: Unremarkable. Lymph nodes: No enlarged lymph nodes. Liver: Fatty liver. IMPRESSION: No central pulmonary embolus. Dictated By: Luiza Adams MD Signed By: 07/18/17 1829 Luiza Adams MD Patient Problems - Patient Problem List (1) COPD exacerbation Current Visit: Yes Status: Acute Code(s): J44.1 - Chronic obstructive pulmonary disease with (acute) exacerbation Category: Medical (2) Hypercholesterolemia Current Visit: Yes Status: Chronic Code(s): E78.00 - Pure hypercholesterolemia, unspecified Category: Medical (3) Hypertension Current Visit: Yes Status: Chronic Code(s): I10 - Essential (primary) hypertension Qualifiers: Hypertension type: essential hypertension Qualified Code(s): I10 - Essential (primary) hypertension Category: Medical (4) Depression Current Visit: Yes Status: Chronic Code(s): F32.9 - Major depressive disorder, single episode, unspecified Qualifiers: Depression Type: major depressive disorder Major depression recurrence: recurrent Active/Remission status: remission status unspecified Qualified Code(s): F33.9 - Major depressive disorder, recurrent, unspecified Category: Medical
[2017-07-21] MEDS ORDERED: Amoxicill/Clav 875/125mg Tab 1 TAB TAB PO SCH (21:00)
== END 2017-07-21 18:15 | disposition home or self-care (01) | DRG 192 ==
LOC: MED/SURG 13:37
PROVIDERS: ADMIT Internal Medicine; ATTEND Internal Medicine

== ENCOUNTER 2019-10-15 23:40 | Inpatient (IN) ==
[2019-10-15] MEDS ORDERED: methylPREDNISolone 125 MG/2 ML VIAL IVP ONE (23:58)
[2019-10-15] MEDS ORDERED: ALBUTEROL SULFATE 2.5 MG/3 ML NEB ONE (23:58)
[2019-10-16 00:07] LABS: BASOPHILS # (AUTO) 0.03 10*3/UL; BASOPHILS % (AUTO) 0.4 % (0-1); EOSINOPHILS # (AUTO) 0.06 10*3/UL; EOSINOPHILS % (AUTO) 0.8 % (0-8); Hemoglobin [HGB] 15.1 g/dL (12.0-16.0); LYMPHOCYTES # (AUTO) 1.45 10*3/uL; MEAN CORPUSCULAR HGB CONC 32.1 g/dL (33-37); MEAN CORPUSCULAR VOLUME 98.3 FL (81-99); MEAN PLATELET VOLUME 8.6 FL (7.4-12.2); MONOCYTES # (AUTO) 0.84 10*3/UL (0.3-0.8); MONOCYTES % (AUTO) 11.8 % (5-15); NEUTROPHILS # (AUTO) 4.74 10*3/UL; NEUTROPHILS % (AUTO) 66.4 % (50-80); RED BLOOD COUNT 4.78 10^6/uL (4.20-5.40)
[2019-10-16 00:09] LABS: PLATELET MORPHOLOGY COMMENT NORMAL MORPHOLOGY (NORM); RBC MORPHOLOGY COMMENT NORMAL MORPHOLOGY (NORM); WBC MORPHOLOGY COMMENT NORMAL MORPHOLOGY (NORM)
[2019-10-16 00:14] LABS: BLOOD UREA NITROGEN 13 mg/dL (7-22); BUN/CREATININE RATIO 16.25 (6-20); SERUM ALBUMIN 4.5 g/dL (3.5-4.8)
[2019-10-16] MEDS ORDERED: cefTRIAXone Inj 1 GM in Sodium Chloride 0.9% 100 ML IV ONE (01:11)
[2019-10-16] MEDS ORDERED: ACETAMINOPHEN 325 MG TABLET PO ONE (01:22)
[2019-10-16] MEDS ORDERED: LIDOCAINE W/ SODIUM BICARB 0.5 ML SYR SUBD PRN (02:22)
[2019-10-16] MEDS ORDERED: ALBUTEROL SULFATE 2.5 MG/3 ML NEB PRN (02:22)
[2019-10-16] MEDS: LEVOTHYROXINE 50 MCG TABLET PO SCH (04:49)
[2019-10-16] MEDS: IPRATROPIUM/ALBUTEROL SULFATE 3 ML NEB NEB SCH ×4 (06:17→19:12)
[2019-10-16] MEDS: FLUTICASONE/SALMETEROL 250/50 UD INHALER INH SCH ×2 (06:20→19:14)
[2019-10-16] MEDS: methylPREDNISolone 125 MG/2 ML VIAL IVP SCH ×3 (07:27→19:06)
[2019-10-16] MEDS ORDERED: Simvastatin Tab 40 MG TAB PO SCH (09:00)
[2019-10-16] MEDS: buPROPion XL Tab 150 MG TAB PO SCH (09:14)
[2019-10-16] MEDS: FAMOTIDINE 40 MG TABLET PO SCH ×2 (09:15→20:31)
[2019-10-16] MEDS: PARoxetine Tab 20 MG TAB PO SCH (09:15)
[2019-10-16] MEDS: ASPIRIN 325 MG EC TABLET PO SCH (09:15)
[2019-10-16] MEDS: BENAZEPRIL 10 MG TABLET PO SCH (09:15)
[2019-10-16] MEDS: METOPROLOL SUCCINATE 25 MG SR 24H TABLET PO SCH (09:15)
[2019-10-16] MEDS: [UNRECOGNIZED DRUG - OTHER] PO SCH (09:16)
[2019-10-16] MEDS: VITAMIN B COMPLEX PO SCH (09:34)
[2019-10-16] MEDS: oxyCODONE/APAP 7.5/325 Tab 1 TAB TAB PO PRN (17:09)
[2019-10-16] MEDS: GABAPENTIN 300 MG CAPSULE PO SCH (20:31)
[2019-10-16] MEDS: Gabapentin 600 MG TABLET PO SCH (20:31)
[2019-10-16] MEDS: Simvastatin Tab 40 MG TAB PO SCH (20:31)
[2019-10-17] MEDS: cefTRIAXone Inj 1 GM in Sodium Chloride 0.9% 100 ML IV SCH (00:48)
[2019-10-17] MEDS: methylPREDNISolone 125 MG/2 ML VIAL IVP SCH ×2 (00:48→07:16)
[2019-10-17] MEDS: LEVOTHYROXINE 50 MCG TABLET PO SCH (05:20)
[2019-10-17] MEDS: IPRATROPIUM/ALBUTEROL SULFATE 3 ML NEB NEB SCH ×4 (06:33→19:25)
[2019-10-17] MEDS: FLUTICASONE/SALMETEROL 250/50 UD INHALER INH SCH ×2 (06:35→19:28)
[2019-10-17] MEDS: METOPROLOL SUCCINATE 25 MG SR 24H TABLET PO SCH (09:08)
[2019-10-17] MEDS: FAMOTIDINE 40 MG TABLET PO SCH ×2 (09:08→20:49)
[2019-10-17] MEDS: ASPIRIN 325 MG EC TABLET PO SCH (09:08)
[2019-10-17] MEDS: BENAZEPRIL 10 MG TABLET PO SCH (09:08)
[2019-10-17] MEDS: buPROPion XL Tab 150 MG TAB PO SCH (09:08)
[2019-10-17] MEDS: PARoxetine Tab 20 MG TAB PO SCH (09:08)
[2019-10-17] MEDS: [UNRECOGNIZED DRUG - OTHER] PO SCH (09:09)
[2019-10-17] MEDS: VITAMIN B COMPLEX PO SCH (09:13)
[2019-10-17] MEDS ORDERED: methylPREDNISolone 125 MG/2 ML VIAL IVP SCH (13:00)
[2019-10-17] MEDS: methylPREDNISolone 40 MG/1 ML VIAL IVP SCH ×2 (13:07→19:16)
[2019-10-17] MEDS: Gabapentin 600 MG TABLET PO SCH (20:48)
[2019-10-17] MEDS: Simvastatin Tab 40 MG TAB PO SCH (20:48)
[2019-10-17] MEDS: GABAPENTIN 300 MG CAPSULE PO SCH (20:48)
[2019-10-17] MEDS: oxyCODONE/APAP 7.5/325 Tab 1 TAB TAB PO PRN (20:50)
[2019-10-18] MEDS: cefTRIAXone Inj 1 GM in Sodium Chloride 0.9% 100 ML IV SCH (01:48)
[2019-10-18] MEDS: methylPREDNISolone 40 MG/1 ML VIAL IVP SCH ×2 (01:48→07:00)
[2019-10-18] MEDS: LEVOTHYROXINE 50 MCG TABLET PO SCH (05:53)
[2019-10-18] MEDS: FLUTICASONE/SALMETEROL 250/50 UD INHALER INH SCH (06:31)
[2019-10-18] MEDS: IPRATROPIUM/ALBUTEROL SULFATE 3 ML NEB NEB SCH (06:32)
[2019-10-18 06:54] VITALS: BP 118/65; TEMP 97.5
[2019-10-18 07:00] VITALS: RESP 18
[2019-10-18 07:16] VITALS: O2SAT 93
[2019-10-18] MEDS: ASPIRIN 325 MG EC TABLET PO SCH (08:24)
[2019-10-18] MEDS: METOPROLOL SUCCINATE 25 MG SR 24H TABLET PO SCH (08:25)
[2019-10-18] MEDS: PARoxetine Tab 20 MG TAB PO SCH (08:25)
[2019-10-18] MEDS: BENAZEPRIL 10 MG TABLET PO SCH (08:25)
[2019-10-18] MEDS: buPROPion XL Tab 150 MG TAB PO SCH (08:25)
[2019-10-18] MEDS: FAMOTIDINE 40 MG TABLET PO SCH (08:26)
[2019-10-18] MEDS ORDERED: POLYETHYLENE GLYCOL 3350 17 GM POWDER PO SCH (09:00)
== END 2019-10-18 10:00 | disposition home or self-care (01) | DRG 191 ==
LOC: ER 23:40 → MED/SURG 10-16 01:41
PROVIDERS: ADMIT Internal Medicine; ATTEND Internal Medicine